=== PATIENT | female | born 1945 | race Caucasian/White ===

== ENCOUNTER 2021-06-23 08:30 | Observation (INO) ==
[2021-06-23] MEDS: Aspirin 81 MG TAB.CHEW PO ONE ×2 (09:05→12:40)
[2021-06-23 09:07] LABS: Basophils # 0.1 K/mcL (0.0-0.2); Basophils % 0.7 %; Eosinophils # 0.1 K/mcL (0.0-0.6); Eosinophils % 1.5 %; Hematocrit 42.9 % (35.3-44.9); Hemoglobin 14.9 g/dL (11.5-15.4); Immature Granulocytes % 0.3 % (0-4); Lymphocytes # 1.7 K/mcL (0.6-4.6); Lymphocytes % 19.1 %; Mean Corpuscular HGB Conc 34.7 g/dL (31.6-35.5); Mean Corpuscular Hemoglobin 29.7 pg (28.0-33.3); Mean Corpuscular Volume 85.5 fL (83.0-100.0); Mean Platelet Volume 9.9 fL (9.4-12.4); Monocytes # 0.8 K/mcL (0.0-1.3); Monocytes % 8.6 %; Neutrophils # 6.2 K/mcL (1.6-8.9); Platelet Count 412 K/mcL (140-400); Red Blood Count 5.02 M/mcL (3.82-4.97); Red Cell Distribution Width 13.2 % (11.5-14.5); Segmented Neutrophils % 69.8 %; White Blood Count 8.9 K/mcL (4.3-11.1)
[2021-06-23] MEDS: Nitroglycerin 0.4 MG TAB.SUBL SL PRN ×2 (09:17→16:05)
[2021-06-23 09:24] LABS: INR 1.1; Prothrombin Time 12.3 Seconds (9.4-12.1)
[2021-06-23 09:27] LABS: Activated Partial Thrombo Time 32.1 Seconds (26.0-36.0); Alanine Aminotransferase 9 Units/L (7-52); Albumin 4.2 g/dL (3.5-5.7); Albumin/Globulin Ratio 1.4 (1.1-2.2); Alkaline Phosphatase 49 Units/L (34-104); Aspartate Amino Transferase 15 Units/L (13-39); BUN/Creatinine Ratio 15 (6-26); Bilirubin,Direct 0.1 mg/dL (0.0-0.2); Bilirubin,Indirect 0.4 mg/dL (0.0-1.0); Bilirubin,Total 0.5 mg/dL (0.3-1.0); Blood Urea Nitrogen 12 mg/dL (8-23); Calcium 9.3 mg/dL (8.6-10.3); Carbon Dioxide 20 mEq/L (23-29); Chloride 99 mEq/L (98-107); Globulin 2.9 g/dL (2.4-3.5); Glucose 140 mg/dL (70-105); Osmolality,Calculated 278 (280-300); Potassium 3.8 mEq/L (3.5-5.1); Sodium 133 mEq/L (136-145); Total Protein 7.1 g/dL (6.4-8.9); eGFR For African Americans > 60 (> 60); eGFR For Non-African Americans > 60 (> 60)
[2021-06-23 09:28] LABS: Troponin I < 0.03 ng/mL (< 0.04)
[2021-06-23] MEDS ORDERED: Naloxone 0.4 MG/ML INJ IVP PRN (09:53)
[2021-06-23] MEDS ORDERED: Ondansetron 4 MG/2 ML VIAL IVP PRN (09:53)
[2021-06-23] MEDS ORDERED: *HR* OxyCODONE Immed Rel 5 MG TABLET PO PRN (09:57)
[2021-06-23] MEDS ORDERED: Loratadine 10 MG TABLET PO PRN (10:08)
[2021-06-23] MEDS ORDERED: Acyclovir 500 MG in D5% in Water 100 ML IVPB SCH (11:50)
[2021-06-23] MEDS ORDERED: Perflutren Lipid Microsphere 1.3 ML in 0.9 % Sodium Chloride 8.7 ML IVP PRN (11:51)
[2021-06-23] MEDS: Furosemide 20 MG/2 ML VIAL IVP SCH (12:34)
[2021-06-23] MEDS ORDERED: Aspirin 81 MG TAB.CHEW ONE (12:39)
[2021-06-23] MEDS: Gabapentin 100 MG CAPSULE PO SCH ×2 (14:39→20:14)
[2021-06-23] MEDS: valACYclovir 500 MG TABLET PO SCH ×2 (14:40→20:13)
[2021-06-23] MEDS ORDERED: Isovue-370 500 ML BOTTLE IVP ONE (16:02)
[2021-06-23] MEDS ORDERED: Mag Hydrox/Al Hydrox/Simeth 30 ML UDC PO PRN (17:06)
[2021-06-23] MEDS ORDERED: Famotidine 20 MG/2 ML VIAL IVP ONE (17:06)
[2021-06-23] MEDS ORDERED: Latanoprost 2.5 ML BOTTLE BOTH EYES SCH ×2 (18:00→21:00)
[2021-06-23 19:57] LABS: Bilirubin,Urine Negative (Negative); Blood,Urine Negative (Negative); Clarity,Urine Clear (Clear); Color,Urine Yellow (Yellow); Glucose,Urine (UA) Normal (Normal); Ketones,Urine Negative (Negative); Leukocyte Esterase,Urine Negative (Negative); Nitrite,Urine Negative (Negative); PH,Urine 5.5 pH Units (5.0-8.0); Protein,Urine Negative (Neg-Trace); Specific Gravity,Urine <= 1.005 (1.010-1.025); Urobilinogen,Urine Normal (Normal)
[2021-06-23] MEDS: Acetaminophen 325 MG TABLET PO PRN (20:14)
[2021-06-23] MEDS: Ascorbic Acid 500 MG TABLET PO SCH (20:18)
[2021-06-23] MEDS: Cholecalciferol (D-3) 1,000 UNIT (25MCG) TABLET PO SCH (20:19)
[2021-06-24 04:55] LABS: Hematocrit 41.1 % (35.3-44.9); Hemoglobin 14.1 g/dL (11.5-15.4); Mean Corpuscular HGB Conc 34.3 g/dL (31.6-35.5); Mean Corpuscular Hemoglobin 29.3 pg (28.0-33.3); Mean Corpuscular Volume 85.3 fL (83.0-100.0); Platelet Count 321 K/mcL (140-400); Red Blood Count 4.82 M/mcL (3.82-4.97); Red Cell Distribution Width 13.3 % (11.5-14.5); White Blood Count 8.3 K/mcL (4.3-11.1)
[2021-06-24 05:12] LABS: Alanine Aminotransferase 9 Units/L (7-52); Albumin 3.8 g/dL (3.5-5.7); Albumin/Globulin Ratio 1.4 (1.1-2.2); Alkaline Phosphatase 44 Units/L (34-104); Aspartate Amino Transferase 13 Units/L (13-39); BUN/Creatinine Ratio 15 (6-26); Bilirubin,Total 0.4 mg/dL (0.3-1.0); Blood Urea Nitrogen 12 mg/dL (8-23); Calcium 8.8 mg/dL (8.6-10.3); Carbon Dioxide 24 mEq/L (23-29); Chloride 101 mEq/L (98-107); Cholesterol 121 mg/dL (< 200); Globulin 2.7 g/dL (2.4-3.5); Glucose 108 mg/dL (70-105); HDL Cholesterol 40 mg/dL (40-59); LDL Cholesterol,Calculated 33 mg/dL (< 100); Magnesium 1.6 mg/dL (1.6-2.6); Osmolality,Calculated 280 (280-300); Potassium 3.8 mEq/L (3.5-5.1); Sodium 135 mEq/L (136-145); Total Protein 6.5 g/dL (6.4-8.9); Triglycerides 238 mg/dL (< 150); eGFR For African Americans > 60 (> 60); eGFR For Non-African Americans > 60 (> 60)
[2021-06-24] MEDS ORDERED: *HR* Enoxaparin 40 MG/0.4 ML SYRINGE SQ SCH (06:00)
[2021-06-24] MEDS: Acetaminophen 325 MG TABLET PO PRN (06:33)
[2021-06-24 07:16] VITALS: RESP 17; O2SAT 96
[2021-06-24] MEDS: Cholecalciferol (D-3) 1,000 UNIT (25MCG) TABLET PO SCH (08:02)
[2021-06-24] MEDS: Ascorbic Acid 500 MG TABLET PO SCH (08:02)
[2021-06-24] MEDS: Gabapentin 100 MG CAPSULE PO SCH (08:03)
[2021-06-24] MEDS: valACYclovir 500 MG TABLET PO SCH (08:03)
[2021-06-24] MEDS: Furosemide 20 MG/2 ML VIAL IVP SCH (08:28)
[2021-06-24] MEDS ORDERED: Aspirin 81 MG TAB.CHEW PO SCH (09:00)
[2021-06-24] MEDS ORDERED: FLUoxetine 20 MG CAPSULE PO SCH (09:00)
[2021-06-24 11:13] VITALS: BP 134/85; PULSE 67; TEMP 98.1
== END 2021-06-24 12:30 | disposition home or self-care (01) ==
LOC: INPGRE 08:30 → EMEROOGRE 08:30 → INPGRE 10:35
PROVIDERS: ADMIT Family Medicine; ATTEND Family Medicine